=== PATIENT | female | born 1990 | race African-American/Black ===

== ENCOUNTER 2016-04-13 03:20 | Emergency (ER) | payer BC ==
[~2016-04-13] VITALS: Ht 154.9 cm; Wt 70.0 kg
[~2016-04-13 03:20] MED LIST: BUTA1CAP PO; IBUP-232 PO; ZANTTAB PO
[2016-04-13 03:40] VITALS: BP 109/58; PULSE 88; RESP 20; TEMP 98.2; O2SAT 98
[2016-04-13] MEDS ORDERED: SODIUM CHLOR 0.9% 1000 ML INJ 1,000 ML IV SCH (04:08)
[2016-04-13] MEDS ORDERED: SODIUM CHLORIDE 0.9% FLUSH 5 ML FLUSH IVF PRN (04:15)
[2016-04-13] MEDS ORDERED: ALUMINUM/MAGNESIUM/SIMETH 30 ML CUP PO ONE (04:15)
[2016-04-13] MEDS ORDERED: LIDOCAINE VISCOUS 2% SOLN 15 ML UDC PO ONE (04:15)
[2016-04-13] MEDS ORDERED: FAMOTIDINE 20 MG/2 ML VIAL IV PUSH ONE (04:15)
[2016-04-13] MEDS ORDERED: ONDANSETRON HCL 4 MG/2 ML VIAL IVP ONE (04:15)
[2016-04-13] MEDS ORDERED: FAMOTIDINE 20 MG/2 ML VIAL ONE (04:19)
[2016-04-13] MEDS ORDERED: ONDANSETRON HCL 4 MG/2 ML VIAL ONE (04:19)
[2016-04-13] MEDS ORDERED: ALUMINUM/MAGNESIUM/SIMETH 30 ML CUP ONE (04:26)
[2016-04-13] MEDS ORDERED: LIDOCAINE VISCOUS 2% SOLN 15 ML UDC ONE (04:26)
[2016-04-13 04:34] LABS: AUTOMATED NEUTROPHIL # 5.9 TH/MM3 (1.8-7.7); BASOPHIL # 0.1 TH/MM3 (0-0.2); BASOPHIL % 0.5 % (0.0-2.0); EOSINOPHIL # 0.2 TH/MM3 (0-0.4); EOSINOPHIL % 1.6 % (0.0-4.0); HEMATOCRIT 35.8 % (35.0-46.0); HEMO FLAGS DIFF FINAL; LYMPH % 41.7 % (9.0-44.0); LYMPHOCYTE # 5.1 TH/MM3 (1.0-4.8); MEAN CELL VOLUME 85.9 FL (80.0-100.0); MEAN CORPUSCULAR HEMOGLOBIN 28.8 PG (27.0-34.0); MEAN CORPUSCULAR HGB CONC 33.5 % (32.0-36.0); MONO % 7.7 % (0.0-8.0); NEUT % 48.5 % (16.0-70.0); PLATELET COUNT 376 TH/MM3 (150-450); RED BLOOD COUNT 4.16 MIL/MM3 (4.00-5.30); RED CELL DISTRIBUTION WIDTH 13.7 % (11.6-17.2); WHITE BLOOD COUNT 12.1 TH/MM3 (4.0-11.0)
[2016-04-13] MEDS ORDERED: MORPHINE SULFATE 8 MG/ML INJ ONE (04:36)
[2016-04-13 04:42] VITALS: BP 110/60; PULSE 76; RESP 18; O2SAT 98
[2016-04-13] MEDS ORDERED: MORPHINE SULFATE 4 MG/ML INJ IV PUSH ONE (04:45)
[2016-04-13 04:57] LABS: APTT (PATIENT) 29.2 SEC (24.3-30.1); PROTHROMBIN TIME - PATIENT 11.2 SEC (9.8-11.6)
[2016-04-13 05:01] LABS: ALT (GPT) 18 U/L (10-53); ANION GAP 6 MEQ/L (5-15); AST (GOT) 18 U/L (15-37); BICARBONATE 28.3 MEQ/L (21.0-32.0); BLOOD UREA NITROGEN 13 MG/DL (7-18); CHLORIDE 109 MEQ/L (98-107); GLOMERULAR FILTRATION RATE 101 ML/MIN (>89); POTASSIUM 3.8 MEQ/L (3.5-5.1); SODIUM (NA) 143 MEQ/L (136-145)
--- NOTE | 2016-04-13 05:02 | PD ---
HPI Chief Complaint: Chest Pain Time Seen by Provider: 04:08 Travel History International Travel<30 days: No Contact w/Intl Traveler<30days: No Traveled to known affect area: No History of Present Illness HPI Patient is a 25-year-old female who presents to emergency room with complaints of chest pain. Patient reports that she woke up at 3 AM with complaints of epigastric pain radiating to her back. Patient reports that she has been feeling nauseous, denies episodes of vomiting. Patient denies fevers or chills. Patient denies cough or congestion. Reports that pain feels a sharp stabbing sensation to her chest. She denies history of cardiac chest pain, denies history of hypertension or hyperlipidemia. Patient with no family history of heart problems including coronary disease or OR or early coronary disease. Patient denies any use of drugs or alcohol. Patient reports no recent travels. Patient is not taking any control at this time. Patient with no other complaints. PFSH Past Medical History Asthma: Yes Diminished Hearing: No Headaches: Yes (MIGRAINES) Immunizations Current: Yes Tetanus Vaccination: Unknown Influenza Vaccination: No ?: Not LMP: 03/30/2016 : 2 Para: 1 Miscarriage: 1 : 0 Dilation and Curettage (D&C): Yes (08/2011) Past Surgical History Gynecologic Surgery: Yes Family History Family History: Negative Social History Alcohol Use: No Tobacco Use: No Substance Use: No Allergies-Medications (Allergen,Severity, Reaction): Coded Allergies: Latex (Verified Allergy, Unknown, 03/16/16) Reported Meds & Prescriptions Reported Meds & Active Scripts Active No Active Prescriptions or Reported Medications Review of Systems General / Constitutional: No: Fever Eyes: No: Visual changes HENT: No: Headaches Cardiovascular: Positive: Chest Pain or Discomfort Respiratory: No: Shortness of Breath Gastrointestinal: Positive: Nausea, Abdominal Pain, No: Vomiting Genitourinary: No: Dysuria Musculoskeletal: No: Pain Skin: No Rash Neurologic: No: Weakness Psychiatric: No: Depression Endocrine: No: Polydipsia Hematologic/Lymphatic: No: Easy Bruising Physical Exam Narrative GENERAL: Patient in mild distress SKIN: Warm and dry. HEAD: Atraumatic. Normocephalic. EYES: Pupils equal and round. No scleral icterus. No injection or drainage. ENT: No nasal bleeding or discharge. Mucous membranes pink and moist. NECK: Trachea midline. No JVD. CARDIOVASCULAR: Regular rate and rhythm. No murmur appreciated. RESPIRATORY: No accessory muscle use. Clear to auscultation. Breath sounds equal bilaterally. GASTROINTESTINAL: Abdomen soft, tenderness to the epigastrium, nondistended. Hepatic and splenic margins not palpable. MUSCULOSKELETAL: No obvious deformities. No clubbing. No cyanosis. No edema. NEUROLOGICAL: Awake and alert. No obvious cranial nerve deficits. Motor grossly within normal limits. Normal speech. PSYCHIATRIC: Appropriate mood and affect; insight and judgment normal. Data Data Last Documented VS Vital Signs Date Time Temp Pulse Resp B/P Pulse Ox O2 Delivery O2 Flow Rate FiO2 04/13/16 05:30 83 18 112/72 98 Room Air 04/13/16 03:40 98.2 Orders Complete Blood Count With Diff (04/13/16 04:08) Comprehensive Metabolic Panel (04/13/16 04:08) D-Dimer (04/13/16 04:08) Prothrombin Time / Inr (Pt) (04/13/16 04:08) Act Partial Throm Time (Ptt) (04/13/16 04:08) Lipase (04/13/16 04:08) Chest, Single Ap (04/13/16 04:08) Ecg Monitoring (04/13/16 04:08) Iv Access Insert/Monitor (04/13/16 04:08) Oximetry (04/13/16 04:08) Sodium Chloride 0.9% Flush (Ns Flush) (04/13/16 04:15) Urinalysis - C+S If Indicated (04/13/16 04:08) Ondansetron Inj (Zofran Inj) (04/13/16 04:15) Sodium Chlor 0.9% 1000 Ml Inj (Ns 1000 M (04/13/16 04:08) Famotidine Inj (Pepcid Inj) (04/13/16 04:15) Al-Mag Hy-Si 40-40-4 Mg/Ml Liq (Mag-Al P (04/13/16 04:15) Lidocaine 2% Viscous (Xylocaine 2% Visco (04/13/16 04:15) Ed Urine Pregnancytest Poc (04/13/16 04:08) Ondansetron Inj (Zofran Inj) (04/13/16 04:19) Famotidine Inj (Pepcid Inj) (04/13/16 04:19) Al-Mag Hy-Si 40-40-4 Mg/Ml Liq (Mag-Al P (04/13/16 04:26) Lidocaine 2% Viscous (Xylocaine 2% Visco (04/13/16 04:26) Morphine Inj (Morphine Inj) (04/13/16 04:45) Morphine Inj (Morphine Inj) (04/13/16 04:36) Us Abdomen Gallbladder (04/13/16 ) Labs Laboratory Tests Test 04/13/16 04:15 White Blood Count 12.1 TH/MM3 Red Blood Count 4.16 MIL/MM3 Hemoglobin 12.0 GM/DL Hematocrit 35.8 % Mean Corpuscular Volume 85.9 FL Mean Corpuscular Hemoglobin 28.8 PG Mean Corpuscular Hemoglobin 33.5 % Concent Red Cell Distribution Width 13.7 % Platelet Count 376 TH/MM3 Mean Platelet Volume 9.4 FL Neutrophils (%) (Auto) 48.5 % Lymphocytes (%) (Auto) 41.7 % Monocytes (%) (Auto) 7.7 % Eosinophils (%) (Auto) 1.6 % Basophils (%) (Auto) 0.5 % Neutrophils # (Auto) 5.9 TH/MM3 Lymphocytes # (Auto) 5.1 TH/MM3 Monocytes # (Auto) 0.9 TH/MM3 Eosinophils # (Auto) 0.2 TH/MM3 Basophils # (Auto) 0.1 TH/MM3 CBC Comment DIFF FINAL Differential Comment Prothrombin Time 11.2 SEC Prothromb Time International 1.0 RATIO Ratio Activated Partial 29.2 SEC Thromboplast Time D-Dimer Quantitative (PE/DVT) 0.20 MG/L FEU Sodium Level 143 MEQ/L Potassium Level 3.8 MEQ/L Chloride Level 109 MEQ/L Carbon Dioxide Level 28.3 MEQ/L Anion Gap 6 MEQ/L Blood Urea Nitrogen 13 MG/DL Creatinine 0.84 MG/DL Estimat Glomerular Filtration 101 ML/MIN Rate Random Glucose 111 MG/DL Calcium Level 8.8 MG/DL Total Bilirubin LESS THAN 0.1 MG/DL Aspartate Amino Transf 18 U/L (AST/SGOT) Alanine Aminotransferase 18 U/L (ALT/SGPT) Alkaline Phosphatase 51 U/L Total Protein 7.2 GM/DL Albumin 3.7 GM/DL Lipase 211 U/L [facility] Medical Decision Making Medical Screen Exam Complete: Yes Emergency Medical Condition: Yes Interpretation(s) Vital Signs Date Time Temp Pulse Resp B/P Pulse Ox O2 Delivery O2 Flow Rate FiO2 04/13/16 04:42 76 18 110/60 98 04/13/16 03:40 98.2 88 20 109/58 98 EKG at 0341: NSR at 91bpm, qt/qtc: 330/378, no acute st or t wave changes Laboratory Tests Test 04/13/16 04:15 White Blood Count 12.1 TH/MM3 (4.0-11.0) Red Blood Count 4.16 MIL/MM3 (4.00-5.30) Hemoglobin 12.0 GM/DL (11.6-15.3) Hematocrit 35.8 % (35.0-46.0) Mean Corpuscular Volume 85.9 FL (80.0-100.0) Mean Corpuscular Hemoglobin 28.8 PG (27.0-34.0) Mean Corpuscular Hemoglobin 33.5 % Concent (32.0-36.0) Red Cell Distribution Width 13.7 % (11.6-17.2) Platelet Count 376 TH/MM3 (150-450) Mean Platelet Volume 9.4 FL (7.0-11.0) Neutrophils (%) (Auto) 48.5 % (16.0-70.0) Lymphocytes (%) (Auto) 41.7 % (9.0-44.0) Monocytes (%) (Auto) 7.7 % (0.0-8.0) Eosinophils (%) (Auto) 1.6 % (0.0-4.0) Basophils (%) (Auto) 0.5 % (0.0-2.0) Neutrophils # (Auto) 5.9 TH/MM3 (1.8-7.7) Lymphocytes # (Auto) 5.1 TH/MM3 (1.0-4.8) Monocytes # (Auto) 0.9 TH/MM3 (0-0.9) Eosinophils # (Auto) 0.2 TH/MM3 (0-0.4) Basophils # (Auto) 0.1 TH/MM3 (0-0.2) CBC Comment DIFF FINAL Differential Comment Differential Diagnosis ACS, arrhythmia, gastritis, gastroenteritis, gastric ulcer, cholecystitis Narrative Course Patient is a 25-year-old female who presents to emergency room with complaint chest pain. Patient reports that she woke up in the middle night with pains to her epigastrium. Patient reports that the epigastric pain radiates to her back. Reports nausea with her symptoms. Patient with no history of coronary disease or OR in the past. Patient with no history of hypertension or hyperlipidemia diabetes. Patient with no risk factors for PE or DVT. EKG ordered, EKG with normal sinus rhythm at 91 beats minute, no ST-T wave changes. Patient was placed on quality assurance monitor upon arrival to emergency room. X-ray of chest ordered for further evaluation symptoms. CBC, BMP, liver function tests ordered for further evaluation symptoms as well. Patient given Pepcid as well as GI cocktail, plan to reevaluate patient. Patient reevaluated, patient reports she is feeling much better, reviewed all labs with patient in detail. Right upper quadrant with a solitary echogenic focus to the neck of the gallbladder suspicious for stone. There is no evidence of pericholecystic fluid. Patient with most likely cholelithiasis. Discussed with patient signs and symptoms to look for for acute cholecystitis, and understands when to return to emergency room. Patient will follow up with general surgery as outpatient and return needed. Abdomen is soft, nontender, nondistended, no peritoneal signs at this time. Patient safe for discharge with outpatient follow-up. Patient was given a copy of her ultrasound report from today. Diagnosis Primary Impression: Cholelithiasis Qualified Code: K80.20 - Calculus of gallbladder without cholecystitis without obstruction Additional Impression: Abdominal pain Qualified Code: R10.13 - Epigastric pain Referrals: [facility] Surgery Patient Instructions: General Instructions, Narcotic given in the ED Additional Instructions: Please follow-up with your primary care doctor Please follow-up with general surgery as outpatient Return to ER as needed Please bring your US report to your doctor's office for follow-up on all studies from today Scripts No Active Prescriptions or Reported Meds Disposition: 01 DISCHARGE HOME Condition: Britney Cole DO Apr 13, 2016 05:02
[2016-04-13 05:04] LABS: ALKALINE PHOSPHATASE 51 U/L (45-117); TOTAL BILIRUBIN ADULT LESS THAN 0.1 MG/DL (0.2-1.0)
--- NOTE | 2016-04-13 05:11 | RADRPT ---
EXAM DATE/TIME: 04/13/2016 04:28 [facility] COMPARISON: CHEST SINGLE AP, March 16, 2016, 0:58. INDICATIONS : Chest pains. MEDICAL HISTORY : None. SURGICAL HISTORY : None. ENCOUNTER: Initial ACUITY: 1 day PAIN SCORE: 8/10 LOCATION: Bilateral chest FINDINGS: A single view of the chest demonstrates the lungs to be symmetrically aerated without evidence of mas s, infiltrate or effusion. The cardiomediastinal contours are unremarkable. Osseous structures are intact. CONCLUSION: The lungs are clear. Aubrey Ortega MD on April 13, 2016 at 5:10 Board Certified Radiologist. This report was verified electronically.
[2016-04-13 05:30] VITALS: BP 112/72; PULSE 83; RESP 18; O2SAT 98
--- NOTE | 2016-04-13 06:35 | RADRPT ---
EXAM DATE/TIME: 04/13/2016 06:07 [facility] COMPARISON: No previous studies available for comparison. INDICATIONS : Right upper quadrant pain. MEDICAL HISTORY : Migraine. Asthma. SURGICAL HISTORY : Dilation and curettage. ENCOUNTER: Initial ACUITY: 1 day PAIN SCORE: 4/10 LOCATION: Right upper quadrant MEASUREMENTS: LIVER: 14.1 cm length COMMON DUCT: 4 mm RIGHT KIDNEY: 9.6 x 4.8 x 5.2 cm FINDINGS: LIVER: Normal echotexture without focal lesion or ductal dilatation. COMMON DUCT: No intraluminal mass or stone visualized. GALLBLADDER: There is a 7 mm echogenic area near the neck of the gallbladder which demonstrates only minimal shado wing. The gallbladder wall is normal thickness. No pericholecystic fluid. PANCREAS: Not well seen. RIGHT KIDNEY: No evidence of hydronephrosis, stone, or mass. CONCLUSION: 1. Solitary echogenic focus near the neck of the gallbladder suspicious for a stone. 2. Normal dimension common hepatic duct. Aubrey Ortega MD on April 13, 2016 at 6:32 Board Certified Radiologist. This report was verified electronically.
[2016-04-13 07:22] LABS: BACTERIA, URINE RARE /hpf; BLOOD, URINE NEG (NEG); GLUCOSE,URINE NEG (NEG); KETONE, URINE NEG (NEG); NITRITE,URINE NEG (NEG); PH, URINE 6.5 (5.0-8.5); SQUAMOUS EPITHELIAL CELL URINE 1 /hpf (0-5); URINE COLOR LIGHT-YELLOW (YELLW/STRAW)
[2016-04-13 07:23] LABS: COMMENT (UR) CULT NOT INDICATED; CULTURE IF INDICATED CULT NOT INDICATED
--- NOTE | 2016-04-13 14:51 | EKG ---
Date Performed: 04/13/2016 Time Performed: 03:41:10 PTAGE: 25 years EKG: Sinus rhythm Poor R wave progression PREVIOUS TRACING : 03/16/2016 00.44 Compared to the previous tracing, change in progressi on of R wave precordially can be due to lead placement DOCTOR: Juvenal Singh Interpretating Date/Time 04/13/2016 14:49:37
== END 2016-04-13 06:52 | disposition home or self-care (01) ==
LOC: NED 03:20 → NEPE 06:52
DX: K80.20 Calculus of gallbladder without cholecystitis without obstruction (principal); J45.909 Unspecified asthma, uncomplicated
CPT/HCPCS: 71010; 76705; 80053; 81001; 83690; 84703; 85025; 85379; 85610; 85730; 93005; 96374; 96375; 99285; J2270; J2405; J7030

== ENCOUNTER 2016-08-28 15:42 | Emergency (ER) | payer BC ==
[~2016-08-28] VITALS: Ht 154.9 cm; Wt 70.0 kg
[2016-08-28 15:43] VITALS: BP 128/84; PULSE 110; RESP 20; TEMP 99.1; O2SAT 98
[2016-08-28] MEDS ORDERED: SODIUM CHLOR 0.9% 1000 ML INJ 1,000 ML IV SCH (15:58)
--- NOTE | 2016-08-28 15:59 | PD ---
HPI Chief Complaint: Abdominal Pain Time Seen by Provider: 15:59 Travel History International Travel<30 days: No Contact w/Intl Traveler<30days: No Traveled to known affect area: No History of Present Illness HPI 26 year-old female presents to the emergency department for evaluation of right upper quadrant pain, epigastric burning, and bloated sensation. Patient states this has been worse of the last few days. She has been diagnosed with cholelithiasis in the past. She has not followed up with a surgeon. Denies any fever or chills. Denies any nausea or vomiting. She has no other symptoms to report this time. [facility] Past Medical History Medical History: Denies Significant Hx Asthma: Yes Diminished Hearing: No Headaches: Yes (MIGRAINES) Respiratory: Yes (asthma) Immunizations Current: Yes Tetanus Vaccination: > 5 Years Influenza Vaccination: No ?: Not LMP: 08/07/16 : 2 Para: 1 Miscarriage: 1 : 0 Dilation and Curettage (D&C): Yes (08/2011) Past Surgical History Surgical History: No Previous Surgery Gynecologic Surgery: Yes Social History Alcohol Use: No Tobacco Use: No Substance Use: No Allergies-Medications (Allergen,Severity, Reaction): Coded Allergies: Latex (Verified Allergy, Unknown, 08/28/16) Reported Meds & Prescriptions Reported Meds & Active Scripts Active Ibuprofen 600 Mg Tab 600 Mg PO Q8HR PRN Review of Systems Except as stated in HPI: all other systems reviewed are Neg Physical Exam Narrative GENERAL: Well-nourished female patient, in no acute distress SKIN: Focused skin assessment warm/dry. HEAD: Atraumatic. Normocephalic. EYES: Pupils equal and round. No scleral icterus. No injection or drainage. ENT: No nasal bleeding or discharge. Mucous membranes pink and moist. NECK: Trachea midline. No JVD. CARDIOVASCULAR: Regular rate and rhythm. No murmur appreciated. RESPIRATORY: No accessory muscle use. Clear to auscultation. Breath sounds equal bilaterally. GASTROINTESTINAL: Abdomen soft, nondistended. Right upper quadrant and epigastric tenderness to palpation. No rebound tenderness. No guarding. Hepatic and splenic margins not palpable. MUSCULOSKELETAL: No obvious deformities. No clubbing. No cyanosis. No edema. NEUROLOGICAL: Awake and alert. No obvious cranial nerve deficits. Motor grossly within normal limits. Normal speech. PSYCHIATRIC: Appropriate mood and affect; insight and judgment normal. Data Data Last Documented VS Vital Signs Date Time Temp Pulse Resp B/P Pulse Ox O2 Delivery O2 Flow Rate FiO2 08/28/16 18:56 18 08/28/16 16:13 99 Room Air 08/28/16 15:43 99.1 110 128/84 Orders Complete Blood Count With Diff (08/28/16 15:58) Comprehensive Metabolic Panel (08/28/16 15:58) Lipase (08/28/16 15:58) Prothrombin Time / Inr (Pt) (08/28/16 15:58) Act Partial Throm Time (Ptt) (08/28/16 15:58) Urinalysis - C+S If Indicated (08/28/16 15:58) Us Abdomen Gallbladder (08/28/16 ) Iv Access Insert/Monitor (08/28/16 15:58) Ecg Monitoring (08/28/16 15:58) Oximetry (08/28/16 15:58) Sodium Chlor 0.9% 1000 Ml Inj (Ns 1000 M (08/28/16 15:58) Sodium Chloride 0.9% Flush (Ns Flush) (08/28/16 16:00) Ketorolac Inj (Toradol Inj) (08/28/16 16:00) Ed Urine Pregnancytest Poc (08/28/16 15:58) Labs Laboratory Tests Test 08/28/16 16:10 White Blood Count 10.1 TH/MM3 Red Blood Count 4.27 MIL/MM3 Hemoglobin 12.1 GM/DL Hematocrit 36.7 % Mean Corpuscular Volume 86.0 FL Mean Corpuscular Hemoglobin 28.3 PG Mean Corpuscular Hemoglobin 33.0 % Concent Red Cell Distribution Width 14.4 % Platelet Count 350 TH/MM3 Mean Platelet Volume 8.8 FL Neutrophils (%) (Auto) 66.4 % Lymphocytes (%) (Auto) 24.1 % Monocytes (%) (Auto) 7.8 % Eosinophils (%) (Auto) 0.8 % Basophils (%) (Auto) 0.9 % Neutrophils # (Auto) 6.7 TH/MM3 Lymphocytes # (Auto) 2.4 TH/MM3 Monocytes # (Auto) 0.8 TH/MM3 Eosinophils # (Auto) 0.1 TH/MM3 Basophils # (Auto) 0.1 TH/MM3 CBC Comment DIFF FINAL Differential Comment Prothrombin Time 10.6 SEC Prothromb Time International 1.0 RATIO Ratio Activated Partial 28.6 SEC Thromboplast Time Urine Color LIGHT-YELLOW Urine Turbidity CLEAR Urine pH 6.0 Urine Specific [place] 1.019 Urine Protein NEG mg/dL Urine Glucose (UA) NEG mg/dL Urine Ketones NEG mg/dL Urine Occult Blood NEG Urine Nitrite NEG Urine Bilirubin NEG Urine Urobilinogen LESS THAN 2.0 MG/DL Urine Leukocyte Esterase NEG Urine RBC LESS THAN 1 /hpf Urine WBC LESS THAN 1 /hpf Urine Squamous Epithelial 1 /hpf Cells Urine Bacteria RARE /hpf Urine Mucus FEW /lpf Microscopic Urinalysis Comment CULT NOT INDICATED Sodium Level 142 MEQ/L Potassium Level 4.5 MEQ/L Chloride Level 111 MEQ/L Carbon Dioxide Level 23.6 MEQ/L Anion Gap 7 MEQ/L Blood Urea Nitrogen 12 MG/DL Creatinine 0.72 MG/DL Estimat Glomerular Filtration 119 ML/MIN Rate Random Glucose 115 MG/DL Calcium Level 8.6 MG/DL Total Bilirubin LESS THAN 0.1 MG/DL Aspartate Amino Transf 18 U/L (AST/SGOT) Alanine Aminotransferase 20 U/L (ALT/SGPT) Alkaline Phosphatase 52 U/L Total Protein 6.9 GM/DL Albumin 3.4 GM/DL Lipase 212 U/L [facility] Medical Decision Making Medical Screen Exam Complete: Yes Emergency Medical Condition: Yes Medical Record Reviewed: Yes Differential Diagnosis Cholelithiasis versus GERD versus epigastric pain versus biliary colic Narrative Course 6-year-old female with history of cholelithiasis presents to emergency for evaluation right upper quadrant pain. Laboratory Tests Test 08/28/16 16:10 White Blood Count 10.1 TH/MM3 Red Blood Count 4.27 MIL/MM3 Hemoglobin 12.1 GM/DL Hematocrit 36.7 % Mean Corpuscular Volume 86.0 FL Mean Corpuscular Hemoglobin 28.3 PG Mean Corpuscular Hemoglobin 33.0 % Concent Red Cell Distribution Width 14.4 % Platelet Count 350 TH/MM3 Mean Platelet Volume 8.8 FL Neutrophils (%) (Auto) 66.4 % Lymphocytes (%) (Auto) 24.1 % Monocytes (%) (Auto) 7.8 % Eosinophils (%) (Auto) 0.8 % Basophils (%) (Auto) 0.9 % Neutrophils # (Auto) 6.7 TH/MM3 Lymphocytes # (Auto) 2.4 TH/MM3 Monocytes # (Auto) 0.8 TH/MM3 Eosinophils # (Auto) 0.1 TH/MM3 Basophils # (Auto) 0.1 TH/MM3 CBC Comment DIFF FINAL Differential Comment Prothrombin Time 10.6 SEC Prothromb Time International 1.0 RATIO Ratio Activated Partial 28.6 SEC Thromboplast Time Urine Color LIGHT-YELLOW Urine Turbidity CLEAR Urine pH 6.0 Urine Specific [place] 1.019 Urine Protein NEG mg/dL Urine Glucose (UA) NEG mg/dL Urine Ketones NEG mg/dL Urine Occult Blood NEG Urine Nitrite NEG Urine Bilirubin NEG Urine Urobilinogen LESS THAN 2.0 MG/DL Urine Leukocyte Esterase NEG Urine RBC LESS THAN 1 /hpf Urine WBC LESS THAN 1 /hpf Urine Squamous Epithelial 1 /hpf Cells Urine Bacteria RARE /hpf Urine Mucus FEW /lpf Microscopic Urinalysis Comment CULT NOT INDICATED Sodium Level 142 MEQ/L Potassium Level 4.5 MEQ/L Chloride Level 111 MEQ/L Carbon Dioxide Level 23.6 MEQ/L Anion Gap 7 MEQ/L Blood Urea Nitrogen 12 MG/DL Creatinine 0.72 MG/DL Estimat Glomerular Filtration 119 ML/MIN Rate Random Glucose 115 MG/DL Calcium Level 8.6 MG/DL Total Bilirubin LESS THAN 0.1 MG/DL Aspartate Amino Transf 18 U/L (AST/SGOT) Alanine Aminotransferase 20 U/L (ALT/SGPT) Alkaline Phosphatase 52 U/L Total Protein 6.9 GM/DL Albumin 3.4 GM/DL Lipase 212 U/L Last Impressions Gall Bladder Ultrasound 08/28/16 0000 Signed Impressions: Service Date/Time: August 17:00 - CONCLUSION: Cholelithiasis ; multiple small stones in an otherwise normal-appearing gallbladder. No inflammatory changes or biliary obstruction. Rodrigue Marc MD Lab work is without acute concern. Ultrasound does confirm presence of stones with no obstruction or dilation . This is explained to the patient. I have encouraged her to follow-up with gastroenterology or general surgery. She agrees to return immediately with any acute worsening symptoms. Diagnosis Primary Impression: Cholelithiasis Qualified Code: K80.20 - Calculus of gallbladder without cholecystitis without obstruction Referrals: Legal Office Administrator Primary Care Physician Patient Instructions: Gallstones (ED), General Instructions Additional Instructions: Follow-up with a primary care provider Seek gastroenterology evaluation Return immediately with any acute worsening of symptoms Med/Other Pt SpecificInfo: Prescription(s) given Scripts Ibuprofen 600 Mg Orv324 Mg PO Q8HR PRN (PAIN) #30 TAB Ref 0 Prov:Jil Mclean 08/28/16 Disposition: 01 DISCHARGE HOME Condition: Stable Jil Mclean August 28, 2016 15:59
[2016-08-28] MEDS ORDERED: KETOROLAC TROMETHAMINE 30 MG/ML (IVP) VIAL IVP ONE (16:00)
[2016-08-28] MEDS ORDERED: SODIUM CHLORIDE 0.9% FLUSH 10 ML FLUSH IV FLUSH PRN (16:00)
[2016-08-28 16:13] VITALS: RESP 18; O2SAT 99
[2016-08-28 16:37] LABS: BACTERIA, URINE RARE /hpf; BLOOD, URINE NEG (NEG); COMMENT (UR) CULT NOT INDICATED; CULTURE IF INDICATED CULT NOT INDICATED; GLUCOSE,URINE NEG (NEG); KETONE, URINE NEG (NEG); MUCUS URINE FEW /lpf (OCC); NITRITE,URINE NEG (NEG); SQUAMOUS EPITHELIAL CELL URINE 1 /hpf (0-5); URINE COLOR LIGHT-YELLOW (YELLW/STRAW)
[2016-08-28 16:39] LABS: AUTOMATED NEUTROPHIL # 6.7 TH/MM3 (1.8-7.7); BASOPHIL # 0.1 TH/MM3 (0-0.2); BASOPHIL % 0.9 % (0.0-2.0); EOSINOPHIL # 0.1 TH/MM3 (0-0.4); EOSINOPHIL % 0.8 % (0.0-4.0); HEMATOCRIT 36.7 % (35.0-46.0); HEMO FLAGS DIFF FINAL; LYMPH % 24.1 % (9.0-44.0); LYMPHOCYTE # 2.4 TH/MM3 (1.0-4.8); MEAN CORPUSCULAR HEMOGLOBIN 28.3 PG (27.0-34.0); MONO % 7.8 % (0.0-8.0); NEUT % 66.4 % (16.0-70.0); PLATELET COUNT 350 TH/MM3 (150-450); RED BLOOD COUNT 4.27 MIL/MM3 (4.00-5.30); RED CELL DISTRIBUTION WIDTH 14.4 % (11.6-17.2); WHITE BLOOD COUNT 10.1 TH/MM3 (4.0-11.0)
[2016-08-28 16:49] LABS: APTT (PATIENT) 28.6 SEC (24.3-30.1); PROTHROMBIN TIME - PATIENT 10.6 SEC (9.8-11.6)
[2016-08-28 16:54] LABS: ALKALINE PHOSPHATASE 52 U/L (45-117); TOTAL BILIRUBIN ADULT LESS THAN 0.1 MG/DL (0.2-1.0)
[2016-08-28 16:58] LABS: ALT (GPT) 20 U/L (10-53); ANION GAP 7 MEQ/L (5-15); AST (GOT) 18 U/L (15-37); BICARBONATE 23.6 MEQ/L (21.0-32.0); BLOOD UREA NITROGEN 12 MG/DL (7-18); CHLORIDE 111 MEQ/L (98-107); GLOMERULAR FILTRATION RATE 119 ML/MIN (>89); POTASSIUM 4.5 MEQ/L (3.5-5.1); SODIUM (NA) 142 MEQ/L (136-145)
--- NOTE | 2016-08-28 18:09 | RADRPT ---
EXAM DATE/TIME: 08/28/2016 17:00 [facility] COMPARISON: US ABDOMEN - GALLBLADDER, April 13, 2016, 6:07. INDICATIONS : Right upper quadrant pain. MEDICAL HISTORY : . Migraines. Asthma. SURGICAL HISTORY : Dilation and curettage. ENCOUNTER: Subsequent ACUITY: 1 day PAIN SCORE: 3/10 LOCATION: Right upper quadrant MEASUREMENTS: LIVER: 15.1 cm length COMMON DUCT: 4 mm RIGHT KIDNEY: 9.9 x 5.4 x 4.7 cm FINDINGS: LIVER: Normal echotexture without focal lesion or ductal dilatation. COMMON DUCT: No intraluminal mass or stone visualized. GALLBLADDER: Multiple sub-5 mm stones. No wall thickening. No pericholecystic fluid. Negative sonographic Hayes s ign. PANCREAS: The visualized portions are within normal limits. RIGHT KIDNEY: No evidence of hydronephrosis, stone, or mass. CONCLUSION: Cholelithiasis; multiple small stones in an otherwise normal-appearing gallbladder. No inflammatory c hanges or biliary obstruction. Rodrigue Marc MD on August 28, 2016 at 18:06 Board Certified Radiologist. This report was verified electronically.
[2016-08-28] MEDS ORDERED: IBUP-232 PO (18:16)
[2016-08-28 18:56] VITALS: RESP 18
== END 2016-08-28 18:58 | disposition home or self-care (01) ==
LOC: NEPD 15:42
DX: K80.20 Calculus of gallbladder without cholecystitis without obstruction (principal); R14.0 Abdominal distension (gaseous); Z87.09 Personal history of other diseases of the respiratory system; Z86.69 Personal history of other diseases of the nervous system and sense organs
CPT/HCPCS: 76705; 80053; 81001; 83690; 84703; 85025; 85610; 85730; 96361; 96374; 99285; J1885; J7030

== ENCOUNTER → 2016-09-08 | Day surgery (SDC) | payer BC ==
[~2016-09-08] MED LIST changes: +ACETAMINOPHEN/HYDROcodone 325 MG/5 MG TAB ONE; +BUPIVACAINE/EPINEPHRINE 0.5% PF 30 ML VIAL ONE; -BUTA1CAP PO; +KETOROLAC TROMETHAMINE 30 MG/ML (IVP) VIAL IV PUSH ONE; +LACTATED RINGER'S 1000 ML INJ 1,000 ML ONE; +MEPERIDINE HCL 50 MG/ML VIAL ONE; +MIDAZOLAM HCL 2 MG/2 ML VIAL ONE; +ONDANSETRON HCL 4 MG/2 ML VIAL IV PUSH ONE; +PROPOFOL 200 MG/20 ML AMP IV ONE; -ZANTTAB PO; +ceFAZolin INJ 1,000 MG VIAL ONE; +metroNIDAZOLE 500 MG INJ 100 ML IV ONE
--- NOTE | 2016-09-08 11:29 | TN ---
cc: GAVIN SANDOVAL M.D. DATE OF SURGERY: 09/08/2016 PREOPERATIVE DIAGNOSIS Cholelithiasis, cholecystitis. POSTOPERATIVE DIAGNOSIS Cholelithiasis, cholecystitis. PROCEDURE Laparoscopic cholecystectomy. ANESTHESIA General. SURGEON Dr. Sandoval. INDICATION This is a pleasant young lady who had classic signs and symptoms of biliary colic. Plans were made for above. PROCEDURE The patient was taken to the operating room and placed in the supine position. After anesthesia her abdomen is prepped with Betadine. She is given preoperative antibiotics. Timeout was done. We make an incision below the umbilicus. Veress needle was inserted, saline load test was performed. The abdomen was insufflated to 15 mm. The 10 mm trocar was introduced, two other working ports were placed in the midline, one below the xyphoid, one in between the two previously placed ports. The gallbladder was then grasped superiorly and laterally. She had some scar tissue and adhesions from chronic inflammation that were taken down with a combination of blunt dissection and electrocautery. We then are able to identify the cystic duct, very small common duct identified as well. The cystic duct was ligated and transected. There was nonexistent or very small cystic artery and the gallbladder is then teased off the gallbladder bed without any difficulty, placed in EndoCatch and pulled out through the umbilical incision and passed off the field. We then check our dissection site and there is excellent hemostasis without biliary leakage. Liver is smooth, peritoneal surfaces are smooth. Her appendix looks normal. She has some small cysts on both her ovaries. No other gross abnormalities seen. The CO2 was removed. The 10 mm trocar is closed with a 0 Vicryl at the fascial layer and skin is closed with 4-0 Vicryl. Steri-Strips were applied. Sterile bandage was applied. The patient tolerated the procedure well and had no immediate postop complications. Gavin Sandoval MD JDB/TLL /11:09 AM /11:20 AM
== END | disposition home or self-care (01) ==
LOC: ESDC 07:55
PROVIDERS: ATTEND Surgery
DX: K80.10 Calculus of gallbladder with chronic cholecystitis without obstruction (principal)
CPT/HCPCS: 00790; 47562; 88304; J0690; J1885; J2175; J2250; J2405; J3010; J7120